=== PATIENT | male | born 1990 | race Caucasian/White ===

== ENCOUNTER 2017-11-24 23:16 | Emergency (ER) | payer BC ==
[2017-11-24] MEDS ORDERED: SODIUM CHLORIDE 0.9% 500 ML IV STA (23:51)
[2017-11-24] MEDS ORDERED: SODIUM CHLORIDE 0.9% 1,000 ML IV STA ×2 (23:51)
[2017-11-24] MEDS ORDERED: INSULIN REGULAR 100 UNIT/ML VIAL IV ONE (23:52)
[2017-11-24] MEDS ORDERED: INSULIN REGULAR 100 UNIT/ML VIAL SQ ONE (23:52)
[2017-11-24 23:54] LABS: Glucose,Whole Blood 595 mg/dL (75-99)
[2017-11-25] MEDS ORDERED: metFORMIN 500 MG TAB PO STA (00:06)
--- NOTE | 2017-11-25 00:07 | ED ---
General Adult HPI <Isabell Mejias - Last Filed: 11/25/17 02:15> - General Source: patient, RN notes reviewed, old records reviewed Mode of arrival: ambulatory Limitations: no limitations <Renard Nevarez - Last Filed: 11/28/17 12:53> - General Chief complaint: Recheck/Abnormal Lab/Rx Stated complaint: hyperglycemia Time Seen by Provider: 11/24/17 23:51 - History of Present Illness Initial comments: This is a 19-year-old male the ER for evaluation not feeling well, increased urination and increased thirst. Patient has prediabetic to disease. Has been and has been following his sugars. Patient states his sugars reading critically high today. Otherwise denies any headache chest pain shortness of breath or abdominal pain (Renard Nevarez) - Related Data Previous Rx's Medication Instructions Recorded metFORMIN HCL [Glucophage] 500 mg PO BID #60 tab 11/25/17 Allergies Allergy/AdvReac Type Severity Reaction Status Date / Time No Known Allergies Allergy Verified 11/26/17 15:13 Review of Systems ROS Other: All systems not noted in ROS Statement are negative. <Isabell Mejias - Last Filed: 11/25/17 02:15> ROS Other: All systems not noted in ROS Statement are negative. <Renard Nevarez - Last Filed: 11/28/17 12:53> ROS Statement: Those systems with pertinent positive or pertinent negative responses have been documented in the HPI. Past Medical History Past Medical History: No Reported History History of Any Multi-Drug Resistant Organisms: None Reported Past Surgical History: No Surgical Hx Reported Past Psychological History: No Psychological Hx Reported Smoking Status: Never smoker Past Alcohol Use History: Occasional Past Drug Use History: None Reported <Renard Nevarez - Last Filed: 11/28/17 12:53> General Exam Limitations: no limitations General appearance: alert, in no apparent distress Head exam: Present: atraumatic, normocephalic, normal inspection Eye exam: Present: normal appearance, PERRL, EOMI. Absent: scleral icterus, conjunctival injection, periorbital swelling ENT exam: Present: normal exam, mucous membranes moist Neck exam: Present: normal inspection. Absent: tenderness, meningismus, lymphadenopathy Respiratory exam: Present: normal lung sounds bilaterally. Absent: respiratory distress, wheezes, rales, rhonchi, stridor Cardiovascular Exam: Present: regular rate, normal rhythm, normal heart sounds. Absent: systolic murmur, diastolic murmur, rubs, gallop, clicks GI/Abdominal exam: Present: soft, normal bowel sounds. Absent: distended, tenderness, guarding, rebound, rigid Extremities exam: Present: normal inspection, full ROM, normal capillary refill. Absent: tenderness, pedal edema, joint swelling, calf tenderness Back exam: Present: normal inspection Neurological exam: Present: alert, oriented X3, CN II-XII intact Psychiatric exam: Present: normal affect, normal mood Skin exam: Present: warm, dry, intact, normal color. Absent: rash <Renard Nevarez - Last Filed: 11/28/17 12:53> Course <Isabell Mejias - Last Filed: 11/25/17 02:15> <Renard Nevarez - Last Filed: 11/28/17 12:53> Vital Signs 11/24/17 11/25/17 23:34 02:12 Temperature 98.2 F 98.9 F Pulse Rate 77 78 Respiratory 16 18 Rate Blood Pressure 140/95 114/57 O2 Sat by Pulse 96 97 Oximetry - Reevaluation(s) Reevaluation #1: Blood sugar is much improved (Renard Nevarez) Medical Decision Making - Lab Data Result diagrams: 11/25/17 00:12 11/25/17 00:12 <Isabell Mejias - Last Filed: 11/25/17 02:15> - Lab Data Result diagrams: 11/25/17 00:12 11/25/17 00:12 <Renard Nevarez - Last Filed: 11/28/17 12:53> - Medical Decision Making 27 male the ER for evaluation, new onset diabetes. Patient started on metformin and discharged home (Renard Nevarez) - Lab Data Lab Results 11/24/17 11/25/17 11/25/17 Range/Units 23:49 00:12 00:12 WBC (3.8-10.6) k/uL RBC (4.30-5.90) m/uL Hgb (13.0-17.5) gm/dL Hct (39.0-53.0) % MCV (80.0-100.0) fL MCH (25.0-35.0) pg MCHC (31.0-37.0) g/dL RDW (11.5-15.5) % Plt Count (150-450) k/uL Neutrophils % % Lymphocytes % % Monocytes % % Eosinophils % % Basophils % % Neutrophils # (1.3-7.7) k/uL Lymphocytes # (1.0-4.8) k/uL Monocytes # (0-1.0) k/uL Eosinophils # (0-0.7) k/uL Basophils # (0-0.2) k/uL Sodium 134 L (137-145) mmol/L Potassium 4.6 (3.5-5.1) mmol/L Chloride 102 (98-107) mmol/L Carbon Dioxide 19 L (22-30) mmol/L Anion Gap 13 mmol/L BUN 17 (9-20) mg/dL Creatinine 0.80 (0.66-1.25) mg/dL Est GFR (CKD-EPI)AfAm >90 (>60 ml/min/1.73 sqM) Est GFR (CKD-EPI)NonAf >90 (>60 ml/min/1.73 sqM) Glucose 611 H* (74-99) mg/dL POC Glucose (mg/dL) 595 H (75-99) mg/dL POC Glu Lawn Mower Operator ID Maricarmen Matthews Calcium 9.4 (8.4-10.2) mg/dL Phosphorus 4.2 (2.5-4.5) mg/dL Magnesium 1.9 (1.6-2.3) mg/dL Total Bilirubin 1.0 (0.2-1.3) mg/dL AST 42 (17-59) U/L ALT 70 (21-72) U/L Alkaline Phosphatase 169 H (38-126) U/L Total Creatine Kinase 143 (55-170) U/L CK-MB (CK-2) 1.1 (0.0-2.4) ng/mL CK-MB (CK-2) Rel Index 0.8 Troponin I <0.012 (0.000-0.034) ng/mL Total Protein 6.9 (6.3-8.2) g/dL Albumin 4.1 (3.5-5.0) g/dL Urine Color Urine Appearance (Clear) Urine pH (5.0-8.0) Ur Specific Speculator (1.001-1.035) Urine Protein (Negative) Urine Glucose (UA) (Negative) Urine Ketones (Negative) Urine Blood (Negative) Urine Nitrite (Negative) Urine Bilirubin (Negative) Urine Urobilinogen (<2.0) mg/dL Ur Leukocyte Esterase (Negative) Acetone, Qual Positive (Negative) 11/25/17 11/25/17 11/25/17 Range/Units 00:12 00:12 01:40 WBC 7.2 (3.8-10.6) k/uL RBC 5.30 (4.30-5.90) m/uL Hgb 15.4 (13.0-17.5) gm/dL Hct 42.0 (39.0-53.0) % MCV 79.3 L (80.0-100.0) fL MCH 29.1 (25.0-35.0) pg MCHC 36.7 (31.0-37.0) g/dL RDW 12.7 (11.5-15.5) % Plt Count 231 (150-450) k/uL Neutrophils % 54 % Lymphocytes % 37 % Monocytes % 5 % Eosinophils % 1 % Basophils % 1 % Neutrophils # 3.9 (1.3-7.7) k/uL Lymphocytes # 2.7 (1.0-4.8) k/uL Monocytes # 0.4 (0-1.0) k/uL Eosinophils # 0.1 (0-0.7) k/uL Basophils # 0.1 (0-0.2) k/uL Sodium (137-145) mmol/L Potassium (3.5-5.1) mmol/L Chloride (98-107) mmol/L Carbon Dioxide (22-30) mmol/L Anion Gap mmol/L BUN (9-20) mg/dL Creatinine (0.66-1.25) mg/dL Est GFR (CKD-EPI)AfAm (>60 ml/min/1.73 sqM) Est GFR (CKD-EPI)NonAf (>60 ml/min/1.73 sqM) Glucose (74-99) mg/dL POC Glucose (mg/dL) 328 H (75-99) mg/dL POC Glu Lawn Mower Operator ID Ibrahima Arana Calcium (8.4-10.2) mg/dL Phosphorus (2.5-4.5) mg/dL Magnesium (1.6-2.3) mg/dL Total Bilirubin (0.2-1.3) mg/dL AST (17-59) U/L ALT (21-72) U/L Alkaline Phosphatase (38-126) U/L Total Creatine Kinase (55-170) U/L CK-MB (CK-2) (0.0-2.4) ng/mL CK-MB (CK-2) Rel Index Troponin I (0.000-0.034) ng/mL Total Protein (6.3-8.2) g/dL Albumin (3.5-5.0) g/dL Urine Color Colorless Urine Appearance Clear (Clear) Urine pH 6.5 (5.0-8.0) Ur Specific Speculator 1.027 (1.001-1.035) Urine Protein Negative (Negative) Urine Glucose (UA) 4+ H (Negative) Urine Ketones 2+ H (Negative) Urine Blood Negative (Negative) Urine Nitrite Negative (Negative) Urine Bilirubin Negative (Negative) Urine Urobilinogen <2.0 (<2.0) mg/dL Ur Leukocyte Esterase Negative (Negative) Acetone, Qual (Negative) Disposition Time of Disposition: 02:15 <Isabell Mejias P - Last Filed: 11/25/17 02:15> Is patient prescribed a controlled substance at d/c from ED?: No <Renard Nevarez - Last Filed: 11/28/17 12:53> Clinical Impression: Hyperglycemia, New onset type 2 diabetes mellitus Disposition: HOME SELF-CARE Condition: Good Instructions: Type 2 Diabetes in Adults (ED) Prescriptions: metFORMIN HCL [Glucophage] 500 mg PO BID #60 tab Referrals: None,Stated [REFERRING] - 1-2 days
[2017-11-25 00:23] LABS: RDW 12.7 % (11.5-15.5)
[2017-11-25 00:26] LABS: Appearance,Urine Clear (Clear); Bilirubin,Urine Negative (Negative); Blood,Urine Negative (Negative); Color,Urine Colorless; Glucose,Urine (UA) 4+ (Negative); Leukocyte Esterase,Urine Negative (Negative); Nitrite,Urine Negative (Negative); PH, Urine 6.5 (5.0-8.0); Protein,Urine Negative (Negative); Specific Gravity,Urine 1.027 (1.001-1.035); Urobilinogen,Urine <2.0 mg/dL (<2.0)
[2017-11-25 00:41] LABS: Basophils # (A) 0.1 k/uL (0-0.2); Basophils % (A) 1 %; Eosinophils # (A) 0.1 k/uL (0-0.7); Eosinophils % (A) 1 %; HGB 15.4 gm/dL (13.0-17.5); Lymphocytes # (A) 2.7 k/uL (1.0-4.8); Lymphocytes % (A) 37 %; MCH 29.1 pg (25.0-35.0); MCHC 36.7 g/dL (31.0-37.0); MCV 79.3 fL (80.0-100.0); Mean Platelet Volume 7.7; Monocytes # (A) 0.4 k/uL (0-1.0); Monocytes % (A) 5 %; Neutrophils # (A) 3.9 k/uL (1.3-7.7); Neutrophils % (A) 54 %; Platelet Count 231 k/uL (150-450); WBC 7.2 k/uL (3.8-10.6)
[2017-11-25 00:45] LABS: Creatine Kinase 143 U/L (55-170)
[2017-11-25 00:47] LABS: ALT 70 U/L (21-72); AST 42 U/L (17-59); Albumin 4.1 g/dL (3.5-5.0); Alkaline Phosphatase 169 U/L (38-126); Anion Gap 13 mmol/L; Blood Urea Nitrogen 17 mg/dL (9-20); Calcium 9.4 mg/dL (8.4-10.2); Carbon Dioxide 19 mmol/L (22-30); Chloride 102 mmol/L (98-107); Magnesium 1.9 mg/dL (1.6-2.3); Phosphorus 4.2 mg/dL (2.5-4.5); Potassium 4.6 mmol/L (3.5-5.1); Sodium 134 mmol/L (137-145); Total Protein 6.9 g/dL (6.3-8.2)
[2017-11-25 00:54] LABS: Ketones,Urine 2+ (Negative)
[2017-11-25 00:58] LABS: Creatine Kinase MB 1.1 ng/mL (0.0-2.4); Glucose 611 mg/dL (74-99); Troponin I <0.012 ng/mL (0.000-0.034)
[2017-11-25] MEDS ORDERED: SODIUM CHLORIDE 0.9% 1,000 ML IV STA (01:16)
[2017-11-25 01:43] LABS: Glucose,Whole Blood 328 mg/dL (75-99)
[2017-11-25 02:13] VITALS: BP 114/57; PULSE 78; RESP 18; TEMP 98.9
== END 2017-11-25 02:21 | disposition home or self-care (01) ==
LOC: EC 23:16
DX: E11.65 Type 2 diabetes mellitus with hyperglycemia (principal)
CPT/HCPCS: 36415; 80053; 81003; 82009; 82550; 82553; 83735; 84100; 84484; 85025; 87086; 93005; 96360; 96361; 99285

== ENCOUNTER 2017-11-26 14:56 | Emergency (ER) | payer BC ==
[2017-11-26 15:05] VITALS: RESP 18; TEMP 98
[2017-11-26 15:05] LABS: Glucose,Whole Blood 357 mg/dL (75-99)
[2017-11-26] MEDS ORDERED: SODIUM CHLORIDE 0.9% 2,000 ML IV STA (15:26)
--- NOTE | 2017-11-26 15:32 | ED ---
General Adult HPI - General Chief complaint: Recheck/Abnormal Lab/Rx Stated complaint: High Sugar Time Seen by Provider: 11/26/17 15:06 Source: patient Mode of arrival: ambulatory Limitations: no limitations - History of Present Illness Initial comments: Patient is a 27-year-old male presenting for hyperglycemia. Patient states that he was seen on Wednesday and told that he had a blood sugar of 600 and subsequently discharged with metformin. He states that today, his blood sugar still around 300 and he was forced to come in by his girlfriend for evaluation. He denies any abdominal pain, nausea/vomiting/diarrhea or excessive urination. He also states that he feels completely fine and has no chest pain or shortness of breath. - Related Data Previous Rx's Medication Instructions Recorded metFORMIN HCL [Glucophage] 500 mg PO BID #60 tab 11/25/17 Allergies Allergy/AdvReac Type Severity Reaction Status Date / Time No Known Allergies Allergy Verified 11/26/17 15:13 Review of Systems ROS Statement: Those systems with pertinent positive or pertinent negative responses have been documented in the HPI. Constitutional: Negative for chills, fatigue and fever. HENT: Negative for congestion. Respiratory: Negative for chest tightness, shortness of breath and wheezing. Negative for cough Cardiovascular: Negative for chest pain and palpitations. Gastrointestinal: Negative for abdominal pain. Negative for abdominal distention , diarrhea, nausea and vomiting. Genitourinary: Negative for dysuria. Musculoskeletal: Negative for back pain, neck pain and neck stiffness. Skin: Negative for color change. Neurological: Negative for dizziness, speech difficulty, weakness and light- headedness. Psychiatric/Behavioral: Negative for agitation and confusion. Negative for anxiety ROS Other: All systems not noted in ROS Statement are negative. Past Medical History Past Medical History: Diabetes Mellitus History of Any Multi-Drug Resistant Organisms: None Reported Past Surgical History: No Surgical Hx Reported Past Psychological History: No Psychological Hx Reported Smoking Status: Never smoker Past Alcohol Use History: Occasional Past Drug Use History: None Reported General Exam - General Exam Comments Initial Comments: Constitutional: Pt is oriented to person, place, and time. Pt appears well- developed and well-nourished. No distress. HENT: Head: Normocephalic and atraumatic. Eyes: EOM are normal. Neck: Normal range of motion. Neck supple. Cardiovascular: Normal rate, regular rhythm, S1 normal, S2 normal and normal heart sounds. Exam reveals no gallop and no friction rub. No murmur heard. Pulmonary/Chest: Effort normal and breath sounds normal. No tachypnea and no bradypnea. No respiratory distress. No wheezes or rales noted. Abdominal: Soft. Bowel sounds are normal. Pt exhibits no shifting dullness, no distension, no pulsatile liver, no fluid wave, no abdominal bruit and no ascites. There is no tenderness. There is no rigidity, no rebound, no guarding, no tenderness at McBurney's point and negative Goldman's sign. Musculoskeletal: Normal range of motion. Neurological: Pt is alert and oriented to person, place, and time. No cranial nerve deficit. Skin: Skin is warm and dry. No rash noted. Pt is not diaphoretic. No erythema. No pallor. Psychiatric: Pt has a normal mood and affect. Pt behavior is normal. Thought content normal. Limitations: no limitations Course Vital Signs 11/26/17 14:57 Temperature 98 F Pulse Rate 80 Respiratory 18 Rate Blood Pressure 133/86 O2 Sat by Pulse 98 Oximetry Medical Decision Making - Medical Decision Making Laboratory studies showed that there was no evidence of DKA as the patient's anion gap was 12 and bicarb level was 24. Patient was given 2 L normal saline and it was advised that insulin was not certainly indicated in this situation and administering insulin could result in profound hypoglycemia. Patient stated that he was going to get at his wedding after being discharged and it was mutually agreed that insulin would not be given. Because there is no evidence of DKA, patient will be discharged home. Explained all labs and diagnostic test results and that we will discharge the patient home and patient is to follow up with PCP in 1-2 days and return to the ED if symptoms worsen. Pt is agreeable to plan. - Lab Data Result diagrams: 11/26/17 15:36 11/26/17 15:36 Lab Results 11/26/17 11/26/17 11/26/17 Range/Units 15:02 15:36 15:36 WBC 8.3 (3.8-10.6) k/uL RBC 5.73 (4.30-5.90) m/uL Hgb 15.8 (13.0-17.5) gm/dL Hct 45.6 (39.0-53.0) % MCV 79.6 L (80.0-100.0) fL MCH 27.6 (25.0-35.0) pg MCHC 34.6 (31.0-37.0) g/dL RDW 12.7 (11.5-15.5) % Plt Count 230 (150-450) k/uL Neutrophils % 63 % Lymphocytes % 29 % Monocytes % 4 % Eosinophils % 1 % Basophils % 1 % Neutrophils # 5.2 (1.3-7.7) k/uL Lymphocytes # 2.4 (1.0-4.8) k/uL Monocytes # 0.4 (0-1.0) k/uL Eosinophils # 0.1 (0-0.7) k/uL Basophils # 0.1 (0-0.2) k/uL Sodium 138 (137-145) mmol/L Potassium 4.7 (3.5-5.1) mmol/L Chloride 102 (98-107) mmol/L Carbon Dioxide 24 (22-30) mmol/L Anion Gap 12 mmol/L BUN 15 (9-20) mg/dL Creatinine 0.85 (0.66-1.25) mg/dL Est GFR (CKD-EPI)AfAm >90 (>60 ml/min/1.73 sqM) Est GFR (CKD-EPI)NonAf >90 (>60 ml/min/1.73 sqM) Glucose 320 H (74-99) mg/dL POC Glucose (mg/dL) 357 H (75-99) mg/dL POC Glu Order Make Up Clerk ID Nikhil, Katharina Calcium 9.6 (8.4-10.2) mg/dL Magnesium 1.9 (1.6-2.3) mg/dL Urine Color Urine Appearance (Clear) Urine pH (5.0-8.0) Ur Specific [place] (1.001-1.035) Urine Protein (Negative) Urine Glucose (UA) (Negative) Urine Blood (Negative) Urine Nitrite (Negative) Urine Bilirubin (Negative) Urine Urobilinogen (<2.0) mg/dL Ur Leukocyte Esterase (Negative) 11/26/17 Range/Units 15:45 WBC (3.8-10.6) k/uL RBC (4.30-5.90) m/uL Hgb (13.0-17.5) gm/dL Hct (39.0-53.0) % MCV (80.0-100.0) fL MCH (25.0-35.0) pg MCHC (31.0-37.0) g/dL RDW (11.5-15.5) % Plt Count (150-450) k/uL Neutrophils % % Lymphocytes % % Monocytes % % Eosinophils % % Basophils % % Neutrophils # (1.3-7.7) k/uL Lymphocytes # (1.0-4.8) k/uL Monocytes # (0-1.0) k/uL Eosinophils # (0-0.7) k/uL Basophils # (0-0.2) k/uL Sodium (137-145) mmol/L Potassium (3.5-5.1) mmol/L Chloride (98-107) mmol/L Carbon Dioxide (22-30) mmol/L Anion Gap mmol/L BUN (9-20) mg/dL Creatinine (0.66-1.25) mg/dL Est GFR (CKD-EPI)AfAm (>60 ml/min/1.73 sqM) Est GFR (CKD-EPI)NonAf (>60 ml/min/1.73 sqM) Glucose (74-99) mg/dL POC Glucose (mg/dL) (75-99) mg/dL POC Glu Order Make Up Clerk ID Calcium (8.4-10.2) mg/dL Magnesium (1.6-2.3) mg/dL Urine Color Light Yellow Urine Appearance Clear (Clear) Urine pH 5.0 (5.0-8.0) Ur Specific [place] 1.032 (1.001-1.035) Urine Protein Negative (Negative) Urine Glucose (UA) 4+ H (Negative) Urine Blood Negative (Negative) Urine Nitrite Negative (Negative) Urine Bilirubin Negative (Negative) Urine Urobilinogen <2.0 (<2.0) mg/dL Ur Leukocyte Esterase Negative (Negative) Disposition Clinical Impression: Hyperglycemia Disposition: HOME SELF-CARE Condition: Good Instructions: Type 2 Diabetes in Adults (ED) Is patient prescribed a controlled substance at d/c from ED?: No Referrals: [facility],Clinic [Primary Care Provider] - 1-2 days Time of Disposition: 16:33
[2017-11-26 15:59] LABS: Anion Gap 12 mmol/L; Blood Urea Nitrogen 15 mg/dL (9-20); Calcium 9.6 mg/dL (8.4-10.2); Carbon Dioxide 24 mmol/L (22-30); Chloride 102 mmol/L (98-107); Glucose 320 mg/dL (74-99); Magnesium 1.9 mg/dL (1.6-2.3); Potassium 4.7 mmol/L (3.5-5.1); Sodium 138 mmol/L (137-145)
[2017-11-26 16:00] LABS: Appearance,Urine Clear (Clear); Bilirubin,Urine Negative (Negative); Blood,Urine Negative (Negative); Color,Urine Light Yellow; Glucose,Urine (UA) 4+ (Negative); Leukocyte Esterase,Urine Negative (Negative); Nitrite,Urine Negative (Negative); Protein,Urine Negative (Negative); Specific Gravity,Urine 1.032 (1.001-1.035); Urobilinogen,Urine <2.0 mg/dL (<2.0)
[2017-11-26 16:00] LABS: Basophils # (A) 0.1 k/uL (0-0.2); Basophils % (A) 1 %; Eosinophils # (A) 0.1 k/uL (0-0.7); Eosinophils % (A) 1 %; HCT 45.6 % (39.0-53.0); HGB 15.8 gm/dL (13.0-17.5); Lymphocytes # (A) 2.4 k/uL (1.0-4.8); Lymphocytes % (A) 29 %; MCH 27.6 pg (25.0-35.0); MCHC 34.6 g/dL (31.0-37.0); MCV 79.6 fL (80.0-100.0); Mean Platelet Volume 7.4; Monocytes # (A) 0.4 k/uL (0-1.0); Monocytes % (A) 4 %; Neutrophils # (A) 5.2 k/uL (1.3-7.7); Neutrophils % (A) 63 %; Platelet Count 230 k/uL (150-450); RBC 5.73 m/uL (4.30-5.90); RDW 12.7 % (11.5-15.5); WBC 8.3 k/uL (3.8-10.6)
[2017-11-26 16:44] LABS: Glucose,Whole Blood 260 mg/dL (75-99)
[2017-11-26 16:48] VITALS: BP 138/92; PULSE 84
[2017-11-26 17:30] LABS: Ketones,Urine 2+ (Negative)
== END 2017-11-26 16:48 | disposition home or self-care (01) ==
LOC: EC 14:56
DX: E11.65 Type 2 diabetes mellitus with hyperglycemia (principal); Z79.84 Long term (current) use of oral hypoglycemic drugs
CPT/HCPCS: 36415; 80048; 81003; 83735; 85025; 96360; 99283

== ENCOUNTER → 2017-12-03 | Outpatient (CLI) | payer BC ==
[2017-12-03 13:33] LABS: ALT 147 U/L (21-72); AST 90 U/L (17-59); Albumin 4.7 g/dL (3.5-5.0); Alkaline Phosphatase 94 U/L (38-126); Anion Gap 12 mmol/L; Blood Urea Nitrogen 13 mg/dL (9-20); Calcium 10.2 mg/dL (8.4-10.2); Carbon Dioxide 25 mmol/L (22-30); Chloride 102 mmol/L (98-107); Cholesterol 135 mg/dL (<200); Glucose 252 mg/dL (74-99); HDL Cholesterol 30 mg/dL (40-60); LDL Cholesterol,Calculated 51 mg/dL (0-99); Potassium 4.5 mmol/L (3.5-5.1); Sodium 139 mmol/L (137-145); Total Bilirubin 1.3 mg/dL (0.2-1.3); Total Protein 7.7 g/dL (6.3-8.2); Triglycerides 268 mg/dL (<150)
== END | disposition home or self-care (01) ==
LOC: LABWHC1 12:58
PROVIDERS: ATTEND Internal Medicine Endocrinology, Diabetes & Metabolism
DX: E11.65 Type 2 diabetes mellitus with hyperglycemia (principal)
CPT/HCPCS: 36415; 80053; 80061; 84681

== ENCOUNTER → 2020-11-11 | Outpatient (CLI) | payer BC | END | disposition home or self-care (01) | LOC: LABWHC1 09:43 | PROVIDERS: ATTEND Obstetrics & Gynecology Reproductive Endocrinology | DX: Z01.812 Encounter for preprocedural laboratory examination (principal) | CPT/HCPCS: 36415 ==

== ENCOUNTER 2021-03-26 10:14 | Emergency (ER) | payer BC, OTHER ==
[2021-03-26 10:26] VITALS: RESP 16
--- NOTE | 2021-03-26 10:31 | XR ---
EXAMINATION TYPE: XR ankle complete RT DATE OF EXAM: 03/26/2021 COMPARISON: NONE HISTORY: Pain FINDINGS: Three views of the ankle demonstrate the ankle mortise to be intact and symmetric. The joint spaces are preserved. The osseous structures are intact. IMPRESSION: 1. No definite acute fracture or dislocation, if symptoms persist follow-up study in 7 to 10 days wou ld be suggested.
--- NOTE | 2021-03-26 10:38 | ED ---
Lower Extremity Injury HPI - General Chief Complaint: Extremity Injury, Lower Stated Complaint: ankle injury-[facility] Time Seen by Provider: 03/26/21 10:16 Source: patient, RN notes reviewed Mode of arrival: EMS Limitations: no limitations - History of Present Illness Initial Comments: 30-year-old male present emergency department with chief complaint of right ankle injury. 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 Patient went of right lateral ankle pain. No other injuries noted no paresthesias patient's declines pain medicines by EMS in emergency department. Patient has no paresthesias no upper leg pain - Related Data Previous Rx's Medication Instructions Recorded metFORMIN HCL [Glucophage] 500 mg PO BID #60 tab 11/25/17 Allergies Allergy/AdvReac Type Severity Reaction Status Date / Time No Known Allergies Allergy Verified 11/26/17 15:13 Review of Systems ROS Statement: Those systems with pertinent positive or pertinent negative responses have been documented in the HPI. ROS Other: All systems not noted in ROS Statement are negative. Past Medical History Past Medical History: Diabetes Mellitus History of Any Multi-Drug Resistant Organisms: None Reported Past Surgical History: No Surgical Hx Reported Past Psychological History: No Psychological Hx Reported Smoking Status: Former smoker Past Alcohol Use History: Occasional Past Drug Use History: None Reported General Exam Limitations: no limitations General appearance: alert, in no apparent distress Head exam: Present: atraumatic, normocephalic, normal inspection Eye exam: Present: normal appearance, PERRL, EOMI. Absent: scleral icterus, conjunctival injection, periorbital swelling Neck exam: Present: normal inspection, full ROM. Absent: tenderness, meningismus, lymphadenopathy Respiratory exam: Present: normal lung sounds bilaterally. Absent: respiratory distress, wheezes, rales, rhonchi, stridor Cardiovascular Exam: Present: regular rate, normal rhythm, normal heart sounds. Absent: systolic murmur, diastolic murmur, rubs, gallop, clicks Extremities exam: Present: other (Right ankle there is mild swelling the lateral malleoli region with tenderness, no obvious deformity otherwise. Pulses equal bilaterally, cap refill less than 2 seconds no distal foot pain no proximal tib- fib pain) Neurological exam: Present: alert, oriented X3. Absent: motor sensory deficit Course Vital Signs 03/26/21 10:18 Temperature 99.7 F H Pulse Rate 90 Respiratory 16 Rate Blood Pressure 138/91 O2 Sat by Pulse 98 Oximetry Medical Decision Making - Medical Decision Making X-rays negative for acute fracture. Patient has a right ankle sprain will be discharged in stable condition return parameters were discussed. Disposition Clinical Impression: Right ankle sprain Disposition: HOME SELF-CARE Condition: Stable Instructions (If sedation given, give patient instructions): Ankle Sprain (ED) Additional Instructions: Please return to the Emergency Department if symptoms worsen or any other concerns. Is patient prescribed a controlled substance at d/c from ED?: No Referrals: Eyal Rodriguez DO [Primary Care Provider] - 1-2 days Time of Disposition: 10:37
[2021-03-26] MEDS ORDERED: KETOROLAC 15 MG/ML 1 ML VIAL IVP STA (10:40)
[2021-03-26] MEDS ORDERED: ACET/COD 300 MG/30 MG STARTER PACK 6 TAB BTL PO STA (10:40)
[2021-03-26 11:43] VITALS: BP 117/87; PULSE 75; TEMP 98.7
== END 2021-03-26 11:20 | disposition home or self-care (01) ==
LOC: EC 10:14
DX: S93.491A Sprain of other ligament of right ankle, initial encounter (principal); E11.9 Type 2 diabetes mellitus without complications; Z79.84 Long term (current) use of oral hypoglycemic drugs; Z87.891 Personal history of nicotine dependence; X50.0XXA Overexertion from strenuous movement or load, initial encounter
CPT/HCPCS: 99283; 96374; 73610; L4350; J1885